=== PATIENT | male | born 1960 | race Caucasian/White ===

== ENCOUNTER → 2016-10-08 | Outpatient (CLI) | payer BC ==
[~2016-10-08] VITALS: Ht 171.4 cm; Wt 81.8 kg
[~2016-10-08] MED LIST: ACET-62 PO; ALBU8.5H INH; ASPI-558 PO; ATOR20TA59 PO; CETI-115 PO; DOCU-175 PO; DOXY25TA30 PO; DULO30CA23 PO; ESOM40CA24 PO; FLUO40CA PO; FLUT1BLS INH; HYDR12.512 PO; ISOS30TA29 PO; LISI-114 PO; MELO-267 PO; MULT-806 PO; NIAC500C9 PO; OXYC15TA; OXYC20TA44 PO; OXYC40TA; OXYC60TA7 PO; SENN8.6T94 PO; SIMV40TA82 PO; VENL150C2 PO; [UNRECOGNIZED DRUG - CODE] PO
== END ==
LOC: RC 15:48
PROVIDERS: ATTEND Internal Medicine
DX: F17.290 Nicotine dependence, other tobacco product, uncomplicated (principal); J98.8 Other specified respiratory disorders; R94.2 Abnormal results of pulmonary function studies
CPT/HCPCS: 94060; 94726